=== PATIENT | male | born 1975 | race Caucasian/White ===

== ENCOUNTER → 2018-01-22 | Outpatient (CLI) | payer OTHER | LOC: CARD 15:09 | PROVIDERS: ATTEND Internal Medicine Cardiovascular Disease | DX: I10 Essential (primary) hypertension (principal); R07.9 Chest pain, unspecified; R06.00 Dyspnea, unspecified; Z72.0 Tobacco use | CPT/HCPCS: 93017; 93306 ==

== ENCOUNTER 2018-10-30 12:43 | Emergency (ER) | payer OTHER ==
[~2018-10-30] VITALS: Ht 182.9 cm; Wt 83.9 kg
[2018-10-30] MEDS ORDERED: LIDOCAINE 1% INJ 20 ML 20 ML VIAL ONE (12:52)
--- NOTE | 2018-10-30 12:55 | ED Upper Extremity ---
General Chief Complaint: Laceration Stated Complaint: WC RT ARM LAC Source: patient, RN notes reviewed Exam Limitations: no limitations History of Present Illness Date Seen by Provider: October 30, 2018 Time Seen by Provider: 12:51 Initial Comments Patient presents c/ c/o laceration to his right posterior medial proximal forearm sustain on a piece equipment @ work. Didn't even know he did it until noticed blood everywhere. Not sure about his last tetanus. Onset: just prior to arrival Severity: mild Pain/Injury Location: right forearm Method of Injury: incised Modifying Factors: Improves With Other (NONE) Allergies and Home Medications Allergies Coded Allergies: No Known Drug Allergies (Unverified , 10/30/18) Patient Home Medication List Home Medication List Reviewed: Yes Review of Systems Constitutional: see HPI Skin: see HPI, other (laceration right forearm) All Other Systems Reviewed Negative Unless Noted: Yes (Negative excepted noted.) Physical Exam Vital Signs Capillary Refill : Height, Weight, BMI Height: '" Weight: lbs. oz. kg; BMI Method: General Appearance: WD/WN, no apparent distress Respiratory: no respiratory distress Elbow/Forearm: normal ROM, Right, pain (around laceration posterior, medial, proximal fight forearm; bleeding controlled; neurovascular intact.) Wrist: Yes normal ROM Neurologic/Tendon: normal tendon functions Neurologic/Psychiatric: no motor/sensory deficits, alert, oriented x 3 Skin: warm/dry, other (see above under extremity regarding his laceration) Procedures/Interventions Wound Location: Upper Extremities (right forearm) Wound Length (cm): 6 Wound's Depth, Shape: linear, sub Q Wound Explored: clean Betadine Prep?: No (Hibiclens) Anesthesia: 1% Lidocaine Volume Anesthetic (ccs): 6 Suture: Ethlion Suture Size: 4-0 Number of Sutures: 7 Sterile Dressing Applied?: Yes Progress/Results/Core Measures Results/Orders My Orders Orders - BRANDY ALEXANDER DO Lidocaine 1% Inj 20 Ml (Xylocaine 1% Inj (10/30/18 13:00) Dipht,Pertuss(Acell),Tet Adult (Boostrix (10/30/18 13:00) Lidocaine 1% Inj 20 Ml (Xylocaine 1% Inj (10/30/18 12:52) Wound Dressing-Ed (10/30/18 13:13) Medications Given in ED Current Medications Medications Dose Ordered Sig/Suze Route Start Time Stop Time Status Last Admin Dose Admin Lidocaine HCl 20 ml STK-MED ONCE .ROUTE 10/30/18 12:52 10/30/18 12:58 DC 10/30/18 13:03 20 ML Departure Impression Primary Impression: Laceration of right forearm Disposition: HOME, SELF-CARE Condition: Improved Departure-Patient Inst. Decision time for Depature: 13:15 Referrals: NO,LOCAL PHYSICIAN (PCP/Family) Primary Care Physician Patient Instructions: Laceration Repair With Stitches (DC) Add. Discharge Instructions: All discharge instructions reviewed with patient and/or family. Voiced understanding. RECOMMEND 400 mg OF IBUPROFEN EVERY 6 HOURS NEEDED FOR PAIN. RETURN HERE IN 10 DAYS TO HAVE YOUR STITCHES REMOVED. RETURN SOONER IF ANY QUESTIONS, OR CONCERNS. BRANDY ALEXANDER DO October 30, 2018 12:55
[2018-10-30] MEDS ORDERED: LIDOCAINE 1% INJ 20 ML 20 ML VIAL INJ ONE (13:00)
[2018-10-30] MEDS ORDERED: TETANUS,DIPTH,PERTUSS P/F (BOOSTRIX) 0.5 ML VIAL IM ONE (13:00)
[2018-10-30 13:33] VITALS: BP 115/80
--- OUTSIDE RECORDS SUMMARY | 2018-10-30 22:35 | XMS REPORT ---
Author Author JOSE LISA [facility] Address Unknown Care Team Providers Care Hoop Punch Operator Helper Name Role Phone JOSE LISA Unavailable PROBLEMS Unknown Problems ALLERGIES No Known Allergies ENCOUNTERS Encounter Location Date Diagnosis [facility] [id number] [place], [place] [id number] October, Dental examination Z01.20 IMMUNIZATIONS No Known Immunizations SOCIAL HISTORY Never Assessed REASON FOR VISIT melissa PLAN OF CARE Activity Details Follow Up prn Reason:Ext # 8 and # 9 1 hr needed or Cleaning with JAYCEE VITAL SIGNS Blood pressure systolic 145 mmHg 2017-10-18 Blood pressure diastolic 70 mmHg 2017-10-18 MEDICATIONS No Known Medications RESULTS No Results PROCEDURES Procedure Date Ordered Result Body Site LTD ORAL EVALUATION - PROBLEM FOCUS October 18, 2017 INTRAORL-PERIAPICAL 1 FILM [id number] October 18, 2017 INTRAORL-PERIAPICAL EA ADD FILM October 18, 2017 INSTRUCTIONS MEDICATIONS ADMINISTERED No Known Medications MEDICAL (GENERAL) HISTORY Type Description Date Surgical History Tonsil Removed 1989 Surgical History Nasal Pollips Removed 1992
== END 2018-10-30 13:34 | disposition home or self-care (01) ==
LOC: EDUNIT# 12:43 → ER FS 12:45
DX: S51.811A Laceration without foreign body of right forearm, initial encounter (principal); W26.8XXA Contact with other sharp object(s), not elsewhere classified, initial encounter; Y92.59 Other trade areas as the place of occurrence of the external cause; Y99.0 Civilian activity done for income or pay
CPT/HCPCS: 12002; 90471; 90715

== ENCOUNTER 2018-11-10 13:27 | Emergency (ER) | payer OTHER ==
[~2018-11-10] VITALS: Ht 182.9 cm; Wt 83.9 kg
[2018-11-10 13:54] VITALS: BP 150/92
--- OUTSIDE RECORDS SUMMARY | 2018-11-10 22:15 | XMS REPORT | Continuity of Care Document ---
Author Organization Unknown Address Unknown Allergies Active Description Code Type Severity Reaction Onset Reported/Identified Relationship to Patient Clinical Status Yes No Known Drug Allergies [id number] Drug Allergy Unknown N/A 10/30/2018 Medications There is no data. Problems Date Dx Coded Attending Type Code Diagnosis Diagnosed By 02/12/2018 Ot I10 ESSENTIAL (PRIMARY) HYPERTENSION 02/12/2018 Ot R06.00 DYSPNEA, UNSPECIFIED 02/12/2018 Ot R07.9 CHEST PAIN, UNSPECIFIED 02/12/2018 Ot Z72.0 TOBACCO USE Procedures There is no data. Results There is no data. Encounters ACCT No. Visit Date/Time Discharge Status Pt. Type Provider Facility Loc./Unit Complaint [id number] 10/30/2018 12:45:00 10/30/2018 13:34:00 DIS Emergency BRANDY ALEXANDER DO [facility] ER FS WC RT ARM LAC [id number] 01/22/2018 15:09:00 Document Registration
== END 2018-11-10 13:54 | disposition home or self-care (01) ==
LOC: EDUNIT# 13:27 → ER FS 13:28
DX: S51.812D Laceration without foreign body of left forearm, subsequent encounter (principal); X58.XXXD Exposure to other specified factors, subsequent encounter